=== PATIENT | male | born 1960 | race Caucasian/White ===

== ENCOUNTER → 2016-07-30 | Outpatient (CLI) | payer BC | LOC: MW.CHFP 09:11 | PROVIDERS: ATTEND Emergency Medicine | DX: D75.1 Secondary polycythemia (principal) | CPT/HCPCS: 36415; 85014; 85018; 99195 ==

== ENCOUNTER 2019-07-06 09:39 | Day surgery (SDC) | payer BC ==
[~2019-07-06 09:39] MED LIST: Lactated Ringers 1,000 ML IV SCH; Lidocaine 2% 5 ML SDV ONE; Propofol 200 MG/20 ML SDV ONE; Sodium Chloride 0.9% 10 ML SDV IV PRN; Sodium Chloride 0.9% 10 ML Syringe FLUSH PRN; Sodium Chloride 0.9% 2.5 ML Syringe FLUSH PRN; fentaNYL 100 MCG/2 ML SDV ONE
--- NOTE | 2019-07-06 10:34 | PCM.PREANE ---
Preanesthetic Assessment - Anesthesia/Transfusion/Family Hx Anesthesia History: Prior Anesthesia Without Reaction Family History of Anesthesia Reaction: No Transfusion History: No Prior Transfusion(s) - Review of Systems General: No Symptoms Pulmonary: No Symptoms Cardiovascular: No Symptoms Gastrointestinal: No Symptoms Neurological: No Symptoms Other: Reports: None - Physical Assessment NPO Status Date: 07/05/19 Height: 5 ft 7 in Weight: 83.915 kg ASA Class: 2 Mental Status: Alert & Oriented x3 Airway Class: Mallampati = 2 Dentition: Reports: Normal Dentition ROM/Head Extension: Full Lungs: Clear to Auscultation, Normal Respiratory Effort Cardiovascular: Regular Rate, Regular Rhythm - Allergies Allergies/Adverse Reactions: Allergies Allergy/AdvReac Type Severity Reaction Status Date / Time No Known Allergies Allergy Verified 06/30/19 07:39 - Blood Blood Available: No - Anesthesia Plan Pre-Op Medication Ordered: None - Acknowledgements Anesthesia Type Planned: General Anesthesia Pt an Appropriate Candidate for the Planned Anesthesia: Yes Alternatives and Risks of Anesthesia Discussed w Pt/Guardian: Yes Pt/Guardian Understands and Agrees with Anesthesia Plan: Yes Additional Comments: PMH: gerd, htn? - on no meds, PLAN: tiva PreAnesthesia Questionnaire HEENT History: Reports: Allergic Rhinitis Cardiovascular History: Reports: None Respiratory History: Reports: None Gastrointestinal History: Reports: Colon Polyp, GERD Genitourinary History: Reports: None Musculoskeletal History: Reports: Fracture Other Musculoskeletal History: hx of fx hand Neurological History: Reports: None Psychiatric History: Reports: None Endocrine/Metabolic History: Reports: None Hematologic History: Reports: None Immunologic History: Reports: None Oncologic (Cancer) History: Reports: None Dermatologic History: Reports: None - Past Surgical History Head Surgeries/Procedures: Reports: None HEENT Surgical History: Reports: Other (See Below) Other HEENT Surgeries/Procedures: janneth upper lid blepharoplasty Cardiovascular Surgical History: Reports: None Respiratory Surgical History: Reports: None GI Surgical History: Reports: Colonoscopy Other Female Surgeries/Procedures: reversal of vasectomy Male Surgical History: Reports: Vasectomy, Other (See Below) Endocrine Surgical History: Reports: None Neurological Surgical History: Reports: None Musculoskeletal Surgical History: Reports: None Oncologic Surgical History: Reports: None Dermatological Surgical History: Reports: None - SUBSTANCE USE Smoking Status *Q: Former Smoker Tobacco Use Within Last Twelve Months: No - HOME MEDS Home Medications: Home Meds Omeprazole Magnesium [Prilosec Otc] 20 mg PO DAILY 01/07/16 [History] Tadalafil [Cialis] 5 mg PO DAILY 01/07/16 [History] Zolpidem Tartrate 5 mg PO BEDTIME PRN 01/07/16 [History] Cholecalciferol (Vitamin D3) [Vitamin D3] 1,000 units PO DAILY 06/30/19 [History ] Multivitamin [Multivitamins] 1 tab PO DAILY 06/30/19 [History] [place]-3/DHA/Epa/Fish Oil [Fish Oil 1,000 mg Softgel] 1 tab PO DAILY 06/30/19 [ History] - CURRENT (IN HOUSE) MEDS Current Meds: Current Medications Lactated Ringer's (Ringers, Lactated) 1,000 mls @ 125 mls/hr IV ASDIRECTED RED Sodium Chloride (Saline Flush) 10 ml FLUSH ASDIRECTED PRN PRN Reason: Keep Vein Open Sodium Chloride (Saline Flush) 2.5 ml FLUSH ASDIRECTED PRN PRN Reason: Keep Vein Open Sodium Chloride (Saline Flush) 10 ml FLUSH ASDIRECTED PRN PRN Reason: Keep Vein Open Sodium Chloride (Saline Flush) 2.5 ml FLUSH ASDIRECTED PRN PRN Reason: Keep Vein Open Sodium Chloride (Normal Saline) 10 ml IV ASDIRECTED PRN PRN Reason: IV Use Discontinued Medications Fentanyl (Sublimaze) Confirm Administered Dose 100 mcg .ROUTE .STK-MED ONE Stop: 07/06/19 08:34 Lidocaine (Xylocaine-Mpf 2%) Confirm Administered Dose 5 ml .ROUTE .STK-MED ONE Stop: 07/06/19 08:33 Propofol (Diprivan 20 Ml) Confirm Administered Dose 200 mg .ROUTE .STK-MED ONE Stop: 07/06/19 08:34
--- NOTE | 2019-07-06 11:50 | PCM.POSTAN ---
POST ANESTHESIA ASSESSMENT - MENTAL STATUS Mental Status: Alert, Oriented - VITAL SIGNS Vital Signs: Last Vital Signs Temp 36.5 C 07/06/19 10:10 Pulse 70 07/06/19 11:43 Resp 11 L 07/06/19 11:43 BP 118/65 07/06/19 11:43 Pulse Ox 95 07/06/19 11:43 - RESPIRATORY Respiratory Status: Respiratory Rate WNL, Airway Patent, O2 Saturation Stable - CARDIOVASCULAR CV Status: Pulse Rate WNL, Blood Pressure Stable - GASTROINTESTINAL GI Status: No Symptoms - PAIN Pain Score: 0 - POST OP HYDRATION Hydration Status: Adequate & Stable
--- NOTE | 2019-07-06 11:50 | PCM.OPNOTE ---
- General Post-Op/Procedure Note Date of Surgery/Procedure: 07/06/19 Operative Procedure(s): Diagnostic colonoscopy with polypectomy Findings: Transverse colon polyp x 2 Pre Op Diagnosis: Colon polyp history Post-Op Diagnosis: Trasnverse colon polyp x 2 Anesthesia Technique: MAC Primary Surgeon: Jazmine Zamarripa Condition: Good
--- NOTE | 2019-07-06 12:07 | PCM48HPAN ---
Post Anesthesia Note - EVALUATION WITHIN 48HRS OF ANESTHETIC Vital Signs in Normal Range: Yes Patient Participated in Evaluation: Yes Respiratory Function Stable: Yes Airway Patent: Yes Cardiovascular Function Stable: Yes Hydration Status Stable: Yes Pain Control Satisfactory: Yes Nausea and Vomiting Control Satisfactory: Yes Mental Status Recovered: Yes Vital Signs: Last Vital Signs Temp 36.5 C 07/06/19 10:10 Pulse 64 07/06/19 11:56 Resp 11 L 07/06/19 11:56 BP 136/83 07/06/19 11:56 Pulse Ox 94 L 07/06/19 11:56
--- NOTE | 2019-07-07 17:46 | OR ---
SURGEON: JAZMINE ZAMARRIPA MD DATE OF PROCEDURE: 07/06/2019 PREOPERATIVE DIAGNOSIS: History of colon polyps. POSTOPERATIVE DIAGNOSIS: Transverse colon polyps x2. PROCEDURE PERFORMED: Diagnostic colonoscopy with polypectomy. PRIMARY SURGEON: Jazmine Zamarripa MD. ANESTHESIA: MAC. INSTRUMENT USED: Olympus colonoscope. EXTENT OF EXAM: To the cecum. PREPARATION: Good. LIMITATIONS: None. INDICATIONS FOR EXAMINATION: The patient is a 58-year-old male who presents for followup colonoscopy after being found to have colon polyps on his last colonoscopy. I explained the procedure; expected perioperative course; and risks including bleeding, infection, or damage to surrounding structures including perforation. He verbalized understanding and wishes to proceed. PROCEDURE IN DETAIL: The patient was brought into the endoscopy suite and placed in the left lateral decubitus position. A time-out was completed verifying the patient's name, age, date of , allergies, and procedure to be performed. Monitored anesthesia care was induced and continuous oxygen was provided via nasal cannula throughout the procedure. After adequate sedation was achieved, a digital rectal exam was performed. This exam was within normal limits. A well-lubricated colonoscope was inserted in the rectum and advanced under direct visualization to the level of the cecum. The cecum was identified by both visual and anatomic landmarks. A photograph was taken of the cecal cap as well as with the scope retroflexed within the cecum. The scope was then fully withdrawn while examining the color, texture, anatomy, and integrity of the mucosa from the cecum to the anal canal. The patient was found to have two transverse colon polyps. These were removed in piecemeal fashion using cold biopsy forceps. No other abnormalities were found. The scope was brought into the rectum and retroflexed to allow visualization of the anal canal opening. This appeared normal and a photograph was taken. The scope was then straightened out and fully withdrawn. The cecum to anus time was 10 minutes. The patient tolerated the procedure well and was transferred to the PACU in stable condition. ENDOSCOPIC DIAGNOSIS: Transverse colon polyps x2. RECOMMENDATIONS: Follow up in clinic in 2 weeks. NAY DENTON /[id number]
[2019-07-12 06:33] VITALS: BP 128/68; PULSE 68
== END 2019-07-06 12:25 | disposition home or self-care (01) ==
LOC: MW.SDS 09:39
PROVIDERS: ATTEND Surgery
DX: Z12.11 Encounter for screening for malignant neoplasm of colon (principal); K63.5 Polyp of colon; K21.9 Gastro-esophageal reflux disease without esophagitis; E78.5 Hyperlipidemia, unspecified; N52.9 Male erectile dysfunction, unspecified; G47.00 Insomnia, unspecified; Z86.010 Personal history of colon polyps; Z79.899 Other long term (current) drug therapy; Z87.891 Personal history of nicotine dependence
CPT/HCPCS: 45380; J2001; J2704; J3010; J7120; 00811; 88305

== ENCOUNTER 2023-04-03 15:43 | Inpatient (IN) | payer BC ==
[2023-04-03] MEDS ORDERED: Sodium Chloride 0.9% 1,000 ML IV ONE ×3 (15:57→21:52)
[2023-04-03 16:08] LABS: HEMATOCRIT 31.7 % (42.0-52.0); HEMOGLOBIN 9.8 g/dL (14.0-18.0); MEAN CORPUSCULAR HEMOGLOBIN 26.3 pg (28.0-32.0); MEAN CORPUSCULAR HGB CONC 30.9 g/dL (32.0-36.0); NRBC ABSOLUTE 0.54 K/uL (0.00-0.02); RED BLOOD CELL COUNT 3.73 M/uL (4.52-5.90); WHITE BLOOD CELL COUNT,WBC 7.66 K/uL (3.9-11.3)
[2023-04-03 16:28] LABS: A/G RATIO 0.3 (0.9-1.6); ALBUMIN 1.5 g/dL (3.4-5.0); BILIRUBIN TOTAL 0.4 mg/dL (0.2-1.0); CALCIUM 8.9 mg/dL (8.5-10.1); CARBON DIOXIDE,CO2 22.4 mmol/L (21.0-32.0); CREATININE 2.1 mg/dL (0.8-1.3); EST CRCL DRUG DOSING (CG) 34.97 mL/min; POTASSIUM,K 5.4 mmol/L (3.5-5.1); PROTEIN TOTAL,TP 6.9 g/dL (6.4-8.2)
[2023-04-03 16:40] LABS: PLATELET COUNT,PLT 61 K/uL (150-400)
[2023-04-03 17:02] LABS: BAND ABSOLUTE MAN 0.77; BAND PERCENT MAN 10 %; LYMPHOCYTES ABSOLUTE MAN 0.46 K/uL (1.00-4.80); LYMPHOCYTES PERCENT MAN 6 % (24-44); METAMYELOCYTE ABSOLUTE MAN 0.08; METAMYELOCYTE PERCENT MAN 1 %; MONOCYTES ABSOLUTE MAN 0.08 K/uL (0.00-0.80); MONOCYTES PERCENT MAN 1 % (0-8); MYELOCYTE ABSOLUTE MAN 0.15; MYELOCYTE PERCENT MAN 2 %; SEG NEUTROPHILS ABSOLUTE MAN 6.13 K/uL (1.80-7.70); SEG NEUTROPHILS PERCENT MAN 80 % (41-71)
[2023-04-03 17:03] LABS: ROULEAUX 2+ MODERATE
[2023-04-03 17:04] LABS: PLATELET COUNT ESTIMATE DECREASED
[2023-04-03 17:48] LABS: LACTIC ACID 3.1 mmol/L (0.4-2.0)
[2023-04-03 17:57] LABS: INR 1.11 (0.86-1.11); PTT,PARTIAL THROMBOPLSTIN TIME 28.7 SEC (23.9-30.7)
[2023-04-03] MEDS ORDERED: Alum Hydro/Mag Hydro/Simeth XS 15 ML, Lidocaine 2% 5 ML PO ONE ×2 (18:29)
[2023-04-03] MEDS ORDERED: Iopamidol 755 MG/ML 500 ML Multipack Bottle IVPUSH STA (20:10)
[2023-04-03 20:43] LABS: D-DIMER QUANTITATIVE 6.75 mg/L FEU (0.0-0.50)
[2023-04-03] MEDS ORDERED: Piperacillin/Tazobactam 3.375 GM in Sodium Chloride 0.9% 100 ML IV ONE (21:51)
[2023-04-03] MEDS ORDERED: Ondansetron 4 MG/2 ML SDV IVPUSH ONE (22:11)
[2023-04-03] MEDS ORDERED: Morphine 4 MG/ML Syringe IVPUSH ONE (22:11)
[2023-04-03] MEDS ORDERED: VANCOmycin 1.5 GM/300 ML 300 ML IV ONE (22:15)
[2023-04-03] MEDS ORDERED: Acetaminophen 325 MG Tab PO PRN (22:26)
[2023-04-03] MEDS ORDERED: Ondansetron 4 MG/2 ML SDV IVPUSH PRN (22:28)
[2023-04-03] MEDS ORDERED: Sodium Chloride 0.9% 1,000 ML IV SCH (22:30)
[2023-04-04] MEDS: Albuterol/Ipratropium 3.0-0.5 MG/3 ML Neb Soln NEB PRN ×3 (00:01→07:59)
[2023-04-04 05:00] VITALS: PULSE 110
[2023-04-04] MEDS ORDERED: Piperacillin/Tazobactam 4.5 GM in Sodium Chloride 0.9% 100 ML IV SCH (06:00)
[2023-04-04 08:10] LABS: HEMATOCRIT 26.7 % (42.0-52.0); HEMOGLOBIN 8.4 g/dL (14.0-18.0); MEAN CORPUSCULAR HEMOGLOBIN 27.2 pg (28.0-32.0); MEAN CORPUSCULAR HGB CONC 31.5 g/dL (32.0-36.0); MEAN CORPUSCULAR VOLUME 86.4 fL (83.0-99.0); NRBC ABSOLUTE 0.28 K/uL (0.00-0.02); NRBC PERCENT 3.6 /100WBC (0.0-0.2); PLATELET COUNT,PLT 52 K/uL (150-400); RED BLOOD CELL COUNT 3.09 M/uL (4.52-5.90); WHITE BLOOD CELL COUNT,WBC 7.71 K/uL (3.9-11.3)
[2023-04-04 08:18] LABS: A/G RATIO 0.3 (0.9-1.6); ALBUMIN 1.3 g/dL (3.4-5.0); BILIRUBIN TOTAL 0.5 mg/dL (0.2-1.0); CALCIUM 7.5 mg/dL (8.5-10.1); CARBON DIOXIDE,CO2 15.3 mmol/L (21.0-32.0); CREATININE 1.4 mg/dL (0.8-1.3); EST CRCL DRUG DOSING (CG) 52.46 mL/min; POTASSIUM,K 5.9 mmol/L (3.5-5.1); PROTEIN TOTAL,TP 5.2 g/dL (6.4-8.2)
[2023-04-04 08:43] LABS: BAND ABSOLUTE MAN 0.62; BAND PERCENT MAN 8 %; LYMPHOCYTES ABSOLUTE MAN 0.69 K/uL (1.00-4.80); LYMPHOCYTES PERCENT MAN 9 % (24-44); MONOCYTES ABSOLUTE MAN 0.15 K/uL (0.00-0.80); MONOCYTES PERCENT MAN 2 % (0-8); SEG NEUTROPHILS ABSOLUTE MAN 5.94 K/uL (1.80-7.70); SEG NEUTROPHILS PERCENT MAN 77 % (41-71)
[2023-04-04 08:44] LABS: METAMYELOCYTE ABSOLUTE MAN 0.23; METAMYELOCYTE PERCENT MAN 3 %; MYELOCYTE ABSOLUTE MAN 0.08; MYELOCYTE PERCENT MAN 1 %; PLATELET COUNT ESTIMATE DECREASED; ROULEAUX 1+ SLIGHT
[2023-04-04] MEDS ORDERED: Pantoprazole 40 MG in Sodium Chloride 0.9% 10 ML IVPUSH SCH ×2 (09:30→10:30)
[2023-04-04] MEDS ORDERED: traMADol 50 MG Tab PO PRN (10:19)
[2023-04-04] MEDS ORDERED: Calcium Chloride 10% 1 GM/10 ML Syringe IVPUSH ONE (10:25)
[2023-04-04] MEDS ORDERED: Sodium Bicarbonate 8.4% 50 MEQ/50 ML Syringe IVPUSH ONE (10:57)
[2023-04-04] MEDS ORDERED: Insulin Regular, Human 100 Units/ML 10 ML Vial IVPUSH ONE (10:57)
[2023-04-04] MEDS ORDERED: 50% Dextrose in Water 50 ML Syringe IVPUSH PRN (10:57)
[2023-04-04] MEDS ORDERED: 50% Dextrose in Water 50 ML Syringe IVPUSH ONE (10:57)
[2023-04-04] MEDS ORDERED: Glucagon,Human Recombinant 1 MG Vial IM PRN (10:57)
[2023-04-04] MEDS ORDERED: CALCIUM CHLORIDE IV ONE ×2 (11:00)
[2023-04-04] MEDS ORDERED: WATER IV ONE ×4 (11:00→12:00)
[2023-04-04] MEDS ORDERED: DEXTROSE 5% IV ONE ×4 (11:00→12:00)
[2023-04-04] MEDS ORDERED: SODIUM BICARBONATE IV ONE ×2 (12:00)
[2023-04-04 12:03] LABS: CALCIUM 8.3 mg/dL (8.5-10.1); CARBON DIOXIDE,CO2 19.4 mmol/L (21.0-32.0); CREATININE 1.8 mg/dL (0.8-1.3); EST CRCL DRUG DOSING (CG) 40.8 mL/min; POTASSIUM,K 5.1 mmol/L (3.5-5.1)
[2023-04-04] MEDS ORDERED: Calcium Carbonate 500 MG Tab.Chew PO PRN (12:47)
[2023-04-04 15:00] VITALS: BP 120/66
[2023-04-04] MEDS ORDERED: Acyclovir 200 MG Cap PO SCH (21:00)
== END 2023-04-04 14:45 | disposition hospice, home (50) | DRG 469 ==
LOC: MW.ED 15:43 → MW.MS 22:14 → MW.ICU 04-04 13:01
PROVIDERS: ADMIT Family Medicine; ATTEND Family Medicine
DX: N17.9 Acute kidney failure, unspecified (principal); J18.9 Pneumonia, unspecified organism; J96.01 Acute respiratory failure with hypoxia; R91.8 Other nonspecific abnormal finding of lung field; D69.6 Thrombocytopenia, unspecified; J90 Pleural effusion, not elsewhere classified; R04.2 Hemoptysis; F41.9 Anxiety disorder, unspecified; C79.52 Secondary malignant neoplasm of bone marrow; C79.31 Secondary malignant neoplasm of brain; C78.7 Secondary malignant neoplasm of liver and intrahepatic bile duct; D84.9 Immunodeficiency, unspecified; Z66 Do not resuscitate; G47.00 Insomnia, unspecified; K21.9 Gastro-esophageal reflux disease without esophagitis; C64.1 Malignant neoplasm of right kidney, except renal pelvis; Z85.841 Personal history of malignant neoplasm of brain; Z85.05 Personal history of malignant neoplasm of liver; Z51.5 Encounter for palliative care; Z86.010 Personal history of colon polyps; Z79.899 Other long term (current) drug therapy; Z98.52 Vasectomy status; Z87.891 Personal history of nicotine dependence; Z98.890 Other specified postprocedural states; Z90.5 Acquired absence of kidney
CPT/HCPCS: 36415; 71045; 71045-26; 71275; 71275-26; 80048; 80053; 80202; 82947; 83605; 83690; 84484; 85025; 85379; 85610; 85730; 87040; 96360; 96361; 99223; 99285-25; A9270-GY; C9113; J1815-GY; J2543; J3370; J3490; J7030; J7060; J7620-GY; Q9967